=== PATIENT | female | born 1985 | race Asian ===

== ENCOUNTER 2019-10-30 12:11 | Emergency (ER) | payer OTHER, SELFPAY ==
[2019-10-30 12:20] VITALS: BP 112/68; PULSE 82; RESP 13; TEMP 36.9; O2SAT 98; BMI 20.9
[2019-10-30 12:22] VITALS: TEMP 36.6
--- NOTE | 2019-10-30 12:41 | ED_ITS ---
HPI - URI/Sore Throat <YOHANA Grace - Last Filed: 10/30/19 17:08> General Chief Complaint: Upper Respiratory Symptoms Stated Complaint: SOMETHING IS IN THROAT Time Seen by Provider: 10/30/19 12:27 Source: patient Mode of arrival: Ambulatory Limitations: no limitations History of Present Illness HPI Narrative: The patient is a 34-year-old female nonsmoker with history of thyroid cancer who presents with a chief complaint of painful swallowing for the past 3 weeks. She denies any fevers nausea vomiting or diarrhea. She states she saw her primary care provider and has followed her gargle recommendations, with no success. Has not followed up with them. She denies any cough or congestion. She states it is painful to swallow eat. She denies any specific sick exposures, but she has 3 young children and they go to school. The patient has a ENT appointment next month. Related Data Allergies Allergy/AdvReac Type Severity Reaction Status Date / Time No Known Drug Allergies Allergy Verified 10/30/19 12:20 Review of Systems <YOHANA Grace - Last Filed: 10/30/19 17:08> Review of Systems Narrative: GENERAL: Denies chills, fatigue, malaise, fever, sweats. HEENT: See HPI RESPIRATORY: Denies dyspnea, cough, wheezing, hemoptysis, sputum. CARDIOVASCULAR: Denies chest pain, palpitations, orthopnea, edema, GASTROINTESTINAL: Denies nausea, vomiting, abdominal pain, diarrhea, cons tipation, melena. : Denies dysuria, frequency, incontinence, hematuria, urinary retention. MUSCULOSKELETAL: denies weakness, joint pain, or bony pain SKIN: Denies rash, skin lesions, or other NEUROLOGIC: Denies weakness, headache, numbness, change in speech, confusion, seizures, incoordination. PSYCHIATRIC: No concerning psychosocial issues. 12 point review of systems is negative except for those stated above Patient History <YOHANA Grace - Last Filed: 10/30/19 17:08> Social History Smoking Status: Unknown if ever smoked Smoking Status: Unknown if ever smoked alcohol intake frequency: holidays/special occasions only Substance Use Type: does not use Exam <YOHANA Grace - Last Filed: 10/30/19 17:08> Narrative Exam Narrative: GENERAL: This is a well-nourished, well-developed patient, in no acute distress HEAD: Atraumatic. Normocephalic. No temporal or scalp tenderness. EYES: Pupils equal round and reactive. Extraocular motions intact. No scleral icterus. No injection or drainage. ENT: Nose without bleeding, purulent drainage or septal hematoma. Throat without erythema, tonsillar hypertrophy or exudate. Uvula midline. Airway patent. NECK: Trachea midline. No JVD or lymphadenopathy. Supple, nontender, no meningeal signs. CARDIOVASCULAR: Regular rate and rhythm without murmurs, gallops, or rubs. RESPIRATORY: Clear to auscultation. Breath sounds equal bilaterally. No wheezes, rales, or rhonchi. No cough. No increased respiratory effort. No accessory muscle use. EXTREMITIES: No clubbing, cyanosis, or edema. No joint tenderness, effusion, or edema noted. BACK: Nontender without deformity or crepitance. No flank tenderness. NEURO: AOx3. SKIN: No rash or erythema. Initial Vital Signs Initial Vital Signs: Vital Signs Temperature 98.4 F 10/30/19 12:20 Pulse Rate 82 10/30/19 12:20 Respiratory Rate 13 10/30/19 12:20 Blood Pressure 112/68 10/30/19 12:20 Pulse Oximetry 98 10/30/19 12:20 <Shellie Nolen DO - Last Filed: 10/31/19 19:20> Initial Vital Signs Initial Vital Signs: Vital Signs Temperature 98.4 F 10/30/19 12:20 Pulse Rate 82 10/30/19 12:20 Respiratory Rate 13 10/30/19 12:20 Blood Pressure 112/68 10/30/19 12:20 Pulse Oximetry 98 10/30/19 12:20 Course <YOHANA Grace - Last Filed: 10/30/19 17:08> Orders Ordered: ED Orders 10/30/19 12:50 Throat Culture Stat Vital Signs Vital signs: Vital Signs - 8 hr 10/30/19 12:20 10/30/19 12:22 10/30/19 13:38 Temperature 98.4 F 97.8 F Pulse Rate 82 95 H Respiratory Rate 13 Blood Pressure 112/68 92/54 L Pulse Oximetry 98 95 <DO Renetta Robertson Last Filed: 10/31/19 19:20> Orders Ordered: ED Orders 10/30/19 12:50 Throat Culture Stat Vital Signs Vital signs: Vital Signs - 8 hr 10/30/19 12:20 10/30/19 12:22 10/30/19 13:38 Temperature 98.4 F 97.8 F Pulse Rate 82 95 H Respiratory Rate 13 Blood Pressure 112/68 92/54 L Pulse Oximetry 98 95 MDM - URI/Sore Throat <ASCENCION Grace-BC - Last Filed: 10/30/19 17:08> Lab Data Labs: Point of Care Testing Rapid Strep A Negative MDM Narrative Medical decision making narrative: The patient is a 34-year-old female who complains of pain in her throat difficulty swallowing. Rapid strep is negative. Throat culture pending. Overall exam is benign. She is afebrile, able to eat and drink well. She has a standing appointment with ENT next month. I discussed at length the importance of follow-up with primary care provider, keeping her ENT appointment, coming back to the emergency department for any acute concerns such as difficulty breathing. Patient has no questions or concerns upon discharge and states understanding of return precautions as well as follow-up care. <Shellie Nolen, - Last Filed: 10/31/19 19:20> Lab Data Labs: Point of Care Testing Rapid Strep A Negative Discharge Plan Departure Patient Disposition: Home Clinical Impression: Pain in throat Discharge Date/Time: 10/30/19 13:39 Instructions: DI for Strep Throat Activity Restrictions/Additional Instructions: Please follow-up with primary care provider in the next few days. Please keep your previously scheduled ENT appointment In the meantime please try [id number] remedies such as Tylenol, Motrin, throat gargles etcetera Your throat culture should result in 2-3 days. We will call you if anything results on this. Please come back to the emergency department for any acute concerns. Referrals: Andreas Cevallos CNP [Non-Staff] -
[2019-10-30 13:38] VITALS: BP 92/54; PULSE 95; O2SAT 95
== END 2019-10-30 13:39 | disposition home or self-care (01) ==
PROVIDERS: Emergency Provider Nurse Practitioner Family
DX: R07.0 Pain in throat (principal)
CPT/HCPCS: 87070; 87880; 99282; 99283